=== PATIENT | female | born 1945 | race Caucasian/White ===

== ENCOUNTER → 2017-10-16 | Outpatient (CLI) | payer MEDICARE, OTHER ==
[~2017-10-16] MED LIST: ALBUTEROL 0.083% (NEB) 2.5 MG/3 ML AMP
== END | disposition home or self-care (01) ==
LOC: PUL 10:17
DX: R06.2 Wheezing (principal); J84.10 Pulmonary fibrosis, unspecified
CPT/HCPCS: 94060; 94726; 94729

== ENCOUNTER 2017-12-29 18:17 | Inpatient (IN) | payer MEDICARE, OTHER ==
[2017-12-29] MEDS: METHYLPREDNISOLONE 125 MG INJ IV (19:23)
[2017-12-29] MEDS: SOD CHLORIDE 0.9% 500 ML IV (19:24)
[2017-12-29 19:31] LABS: HEMATOCRIT 39.8 % (37.0-47.0); HEMOGLOBIN 13.3 g/dl (12.0-16.0); MEAN CORPUSCULAR HEMOGLOBIN 31.4 pg (29.0-33.0); MEAN CORPUSCULAR HGB CONC 33.4 g/dl (32.0-37.0); MEAN CORPUSCULAR VOLUME 93.9 fl (82.0-101.0); MEAN PLATELET VOLUME 10.7 fl (7.4-10.4); PLATELET COUNT 261 10^3/UL (140-415); RED BLOOD COUNT 4.24 10^6/ul (4.20-5.40); RED CELL DISTRIBUTION WIDTH 13.7 % (11.5-14.5)
[2017-12-29 19:31] LABS: WHITE BLOOD COUNT 8.1 10^3/ul (4.8-10.8)
[2017-12-29 19:39] LABS: ADD MAN DIFF? YES; POSITIVE DIFF @See below
[2017-12-29] MEDS: ALBUTEROL 0.5% (NEB) 2.5 MG/0.5 ML AMP INH (19:41)
[2017-12-29 19:53] LABS: B-TYPE NATRIURETIC PEPTIDE 2080 PG/ML (0-125)
[2017-12-29 20:02] LABS: ADD UMIC YES; UR ASCORBIC ACID NEGATIVE (NEGATIVE); UR BILIRUBIN (Dip) NEGATIVE (NEGATIVE); UR BLOOD (Dip) 2+ mg/dL (NEGATIVE); UR CLARITY CLEAR (CLEAR); UR COLOR COLORLESS (YELLOW); UR GLUCOSE (Dip) NEGATIVE (NEGATIVE); UR KETONES (Dip) NEGATIVE (NEGATIVE); UR LEUKOCYTE ESTERASE (Dip) NEGATIVE Leu/ul (NEGATIVE); UR NITRITE (Dip) NEGATIVE (NEGATIVE); UR RBC 0 /HPF (0-5); UR SPECIFIC GRAVITY (Dip) 1.003 (1.003-1.030); UR TOTAL PROTEIN (Dip) NEGATIVE (NEGATIVE); UR UROBILINOGEN (Dip) NEGATIVE (NEGATIVE); UR WBC 1 /HPF (0-5)
[2017-12-29 20:17] LABS: BAND NEUTROPHILS #M 0.1 10^3/ul (0.0-0.6); BAND NEUTROPHILS % (M) 2 % (0-4); LYMPHOCYTES #M 1.2 10^3/ul (0.8-2.9); LYMPHOCYTES % (M) 16 % (15-51); PLATELET ESTIMATE NORMAL; POLYCHROMASIA 3+ (0-0); SEG NEUT #M 6.7 10^3/ul (1.6-7.5); SEGMENTED NEUTROPHILS (M) % 82 % (39-77)
[2017-12-29] MEDS ORDERED: NACL 0.9% 3 ML SYG IV (20:30)
[2017-12-29] MEDS ORDERED: BISACODYL (EC) 5 MG TAB PO (20:30)
[2017-12-29] MEDS ORDERED: DOCUSATE SODIUM 100 MG CAP PO (20:30)
[2017-12-29 20:31] LABS: ALANINE AMINOTRANSFERASE 21 IU/L (13-69); ALBUMIN 4.3 g/dl (3.3-4.9); ALBUMIN/GLOBULIN RATIO 0.84; ALKALINE PHOSPHATASE 67 IU/L (42-121); ANION GAP 18 (8-16); ASPARTATE AMINO TRANSFERASE 29 IU/L (15-46); BILIRUBIN,INDIRECT 0.7 mg/dl (0-1.1); BILIRUBIN,TOTAL 0.7 mg/dl (0.2-1.3); BLOOD UREA NITROGEN 22 mg/dl (7-20); CALCIUM 9.5 mg/dl (8.4-10.2); CARBON DIOXIDE 25 mmol/L (21-31); CHLORIDE 100 mmol/L (97-110); CREATININE 0.72 mg/dl (0.44-1.00); GLUCOSE 153 mg/dl (70-220); LIPASE 25 U/L (23-300); POTASSIUM 4.7 mmol/L (3.5-5.1); SODIUM 138 mmol/L (135-144); TOTAL PROTEIN 9.4 g/dl (6.1-8.1)
[2017-12-29 20:45] LABS: TROPONIN-I < 0.012 ng/ml (0.000-0.120)
[2017-12-29 20:56] LABS: AADO2 Arterial 51.9 mmHg (7.0-24.0); Allen Test ACCEPTAB; Arterial Base Excess 1.6 mmol/L (-3.0-3); Arterial Blood Gas Oxygen Sat 97.8 mmHG (95.0-100.0); Arterial COHb 0.4 % (0.0-3.0); Arterial Fraction of Oxyhgb 97.1 % (93.0-99.0); Arterial HCO3 24.9 mmol/L (22.0-26.0); Arterial MetHb 0.3 % (0.0-1.5); Arterial Total Hemglobin 13.6 g/dl (12.0-18.0); Arterial pCO2 34.8 mmhg (35-45); MODE NASAL CANNULA; Site Right Radial
[2017-12-29] MEDS: FUROSEMIDE 40 MG INJ IV (21:03)
[2017-12-29] MEDS: ALBUTEROL/IPRATROPIUM (NEB) 3 ML AMP HHN (22:19)
[2017-12-30] MEDS: PANTOPRAZOLE (EC) 40 MG TAB PO ×3 (00:07→20:53)
[2017-12-30] MEDS: morphine 2 MG INJ IV (00:23)
[2017-12-30] MEDS: ONDANSETRON 4 MG INJ IV ×2 (00:23→12:03)
[2017-12-30] MEDS: ALBUTEROL/IPRATROPIUM (NEB) 3 ML AMP HHN ×6 (00:44→19:10)
[2017-12-30 01:12] LABS: MAGNESIUM 1.8 mg/dl (1.7-2.5)
[2017-12-30 02:23] LABS: ADD MAN DIFF? NO
[2017-12-30 02:27] LABS: WHITE BLOOD COUNT 4.4 10^3/ul (4.8-10.8)
[2017-12-30 02:27] LABS: ABNORMAL IP MESSAGE 1; BASOPHILS % 0.2 % (0.0-2.0); HEMATOCRIT 37.4 % (37.0-47.0); HEMOGLOBIN 12.5 g/dl (12.0-16.0); LYMPHOCYTES # 0.5 10^3/ul (0.8-2.9); LYMPHOCYTES % 10.5 % (15.0-51.0); MEAN CORPUSCULAR HEMOGLOBIN 31.5 pg (29.0-33.0); MEAN CORPUSCULAR HGB CONC 33.4 g/dl (32.0-37.0); MEAN CORPUSCULAR VOLUME 94.2 fl (82.0-101.0); MEAN PLATELET VOLUME 10.3 fl (7.4-10.4); MONOCYTES % 0.9 % (0.0-11.0); NEUTROPHIL # 3.9 10^3/ul (1.6-7.5); NEUTROPHILS % 87.9 % (39.0-77.0); PLATELET COUNT 245 10^3/UL (140-415); RED BLOOD COUNT 3.97 10^6/ul (4.20-5.40); RED CELL DISTRIBUTION WIDTH 13.6 % (11.5-14.5)
[2017-12-30 02:31] LABS: POSITIVE DIFF @See below
[2017-12-30 02:56] LABS: ANION GAP 20 (8-16); ASPARTATE AMINO TRANSFERASE 26 IU/L (15-46); BLOOD UREA NITROGEN 21 mg/dl (7-20); CALCIUM 9.1 mg/dl (8.4-10.2); CARBON DIOXIDE 27 mmol/L (21-31); CHLORIDE 98 mmol/L (97-110); CREATININE 0.78 mg/dl (0.44-1.00); GLUCOSE 273 mg/dl (70-220); MAGNESIUM 1.8 mg/dl (1.7-2.5); POTASSIUM 4.3 mmol/L (3.5-5.1); SODIUM 141 mmol/L (135-144)
[2017-12-30 02:57] LABS: ALANINE AMINOTRANSFERASE 18 IU/L (13-69); ALBUMIN 4.1 g/dl (3.3-4.9); ALBUMIN/GLOBULIN RATIO 0.89; ALKALINE PHOSPHATASE 58 IU/L (42-121); BILIRUBIN,INDIRECT 0.6 mg/dl (0-1.1); BILIRUBIN,TOTAL 0.6 mg/dl (0.2-1.3); CHOLESTEROL 178 mg/dl (100-200); HDL CHOLESTEROL 59 mg/dl (33-92); LDL CHOLESTEROL,CALCULATED 107 mg/dl; TOTAL PROTEIN 8.7 g/dl (6.1-8.1); TRIGLYCERIDES 58 mg/dl (0-149)
[2017-12-30 03:04] LABS: HEMOGLOBIN A1C 6.1 % (0-5.9)
[2017-12-30 03:08] LABS: CK-MB 0.55 ng/ml (0.0-2.4); CREATINE KINASE 27 IU/L (23-200)
[2017-12-30 03:09] LABS: TROPONIN-I < 0.012 ng/ml (0.000-0.120)
[2017-12-30] MEDS: METHYLPREDNISOLONE 40 MG INJ IV ×3 (05:07→20:53)
[2017-12-30 05:12] LABS: THYROID STIMULATING HORMONE 0.599 MIU/L (0.465-4.680)
[2017-12-30] MEDS: ACETAMINOPHEN 325 MG TAB PO (12:04)
[2017-12-30] MEDS: GUAIFENESIN 20 MG/ML 5ML CUP PO ×2 (12:04→23:51)
[2017-12-31] MEDS: ALBUTEROL/IPRATROPIUM (NEB) 3 ML AMP HHN ×6 (00:17→20:16)
[2017-12-31] MEDS: METHYLPREDNISOLONE 40 MG INJ IV ×2 (03:59→21:17)
[2017-12-31 05:37] LABS: ADD MAN DIFF? NO
[2017-12-31 05:43] LABS: WHITE BLOOD COUNT 12.7 10^3/ul (4.8-10.8)
[2017-12-31 05:43] LABS: BASOPHILS % 0.1 % (0.0-2.0); HEMATOCRIT 34.9 % (37.0-47.0); HEMOGLOBIN 11.8 g/dl (12.0-16.0); LYMPHOCYTES % 7.9 % (15.0-51.0); MEAN CORPUSCULAR HEMOGLOBIN 31.8 pg (29.0-33.0); MEAN CORPUSCULAR HGB CONC 33.8 g/dl (32.0-37.0); MEAN CORPUSCULAR VOLUME 94.1 fl (82.0-101.0); MEAN PLATELET VOLUME 10.6 fl (7.4-10.4); MONOCYTE # 0.3 10^3/ul (0.3-0.9); MONOCYTES % 2.4 % (0.0-11.0); NEUTROPHIL # 11.3 10^3/ul (1.6-7.5); NEUTROPHILS % 89.2 % (39.0-77.0); PLATELET COUNT 233 10^3/UL (140-415); RED BLOOD COUNT 3.71 10^6/ul (4.20-5.40)
[2017-12-31] MEDS: LEVOTHYROXINE 25 MCG TAB PO (06:03)
[2017-12-31] MEDS: PANTOPRAZOLE (EC) 40 MG TAB PO ×2 (06:03→18:16)
[2017-12-31 06:23] LABS: PHOSPHORUS 3.6 mg/dl (2.5-4.9)
[2017-12-31 06:23] LABS: MAGNESIUM 2.1 mg/dl (1.7-2.5)
[2017-12-31 06:30] LABS: ANION GAP 16 (8-16); BLOOD UREA NITROGEN 21 mg/dl (7-20); CALCIUM 9.4 mg/dl (8.4-10.2); CARBON DIOXIDE 31 mmol/L (21-31); CHLORIDE 98 mmol/L (97-110); CREATININE 0.74 mg/dl (0.44-1.00); GLUCOSE 158 mg/dl (70-220); POTASSIUM 4.2 mmol/L (3.5-5.1); SODIUM 141 mmol/L (135-144)
[2017-12-31] MEDS: GUAIFENESIN 20 MG/ML 5ML CUP PO (10:19)
[2017-12-31] MEDS ORDERED: morphine LIQ (10 MG/5 ML) CUP PO (14:30)
[2018-01-01] MEDS: ALBUTEROL/IPRATROPIUM (NEB) 3 ML AMP HHN ×6 (00:16→20:17)
[2018-01-01] MEDS: LEVOTHYROXINE 25 MCG TAB PO (05:31)
[2018-01-01] MEDS: PANTOPRAZOLE (EC) 40 MG TAB PO ×2 (05:31→18:00)
[2018-01-01] MEDS: METHYLPREDNISOLONE 40 MG INJ IV ×2 (10:08→20:59)
[2018-01-01] MEDS: PROPOFOL 40 ML (19:04)
[2018-01-01] MEDS: LIDOCAINE 2% (SDV) 5 ML INJ (19:04)
[2018-01-01] MEDS: FENTAnyl 50 MCG/ML VIAL IV (20:02)
[2018-01-01] MEDS ORDERED: FENTAnyl 50 MCG/ML VIAL (20:08)
[2018-01-02] MEDS: ALBUTEROL/IPRATROPIUM (NEB) 3 ML AMP HHN ×6 (01:06→21:00)
[2018-01-02] MEDS: LEVOTHYROXINE 25 MCG TAB PO (06:34)
[2018-01-02] MEDS: PANTOPRAZOLE (EC) 40 MG TAB PO ×2 (06:34→17:50)
[2018-01-02] MEDS: METHYLPREDNISOLONE 40 MG INJ IV (09:17)
[2018-01-02] MEDS: GUAIFENESIN 20 MG/ML 5ML CUP PO ×2 (13:25→17:50)
[2018-01-02 17:11] LABS: HLA B-27 NEGATIVE (NEGATIVE)
[2018-01-03 13:42] LABS: ANA SCREEN NEGATIVE (NEGATIVE)
== END 2018-01-02 21:05 | disposition home health service (06) | DRG 196 ==
LOC: E/R 18:17 → MS1 22:47 → TEL 20:18
PROVIDERS: Family Medicine
PROC: 0DB98ZX Excision of Duodenum, Via Natural or Artificial Opening Endoscopic, Diagnostic (ICD-10-PCS; principal; 2018-01-01 16:36)
PROC: 0DB68ZX Excision of Stomach, Via Natural or Artificial Opening Endoscopic, Diagnostic (ICD-10-PCS; 2018-01-01 16:36)
PROC: 0DD58ZX Extraction of Esophagus, Via Natural or Artificial Opening Endoscopic, Diagnostic (ICD-10-PCS; 2018-01-01 16:36)
PROC: 4A033R1 Measurement of Arterial Saturation, Peripheral, Percutaneous Approach (ICD-10-PCS; 2018-01-01 16:36)
DX: J84.112 Idiopathic pulmonary fibrosis (principal); J96.20 Acute and chronic respiratory failure, unspecified whether with hypoxia or hypercapnia; E43 Unspecified severe protein-calorie malnutrition; I50.43 Acute on chronic combined systolic (congestive) and diastolic (congestive) heart failure; N13.30 Unspecified hydronephrosis; Z68.1 Body mass index [BMI] 19.9 or less, adult; R13.10 Dysphagia, unspecified; E03.9 Hypothyroidism, unspecified; I11.0 Hypertensive heart disease with heart failure; J45.909 Unspecified asthma, uncomplicated; F41.9 Anxiety disorder, unspecified; Z99.81 Dependence on supplemental oxygen; K29.70 Gastritis, unspecified, without bleeding; D64.9 Anemia, unspecified
CPT/HCPCS: 36415; 36600; 71045; 71250; 76775; 80048; 80053; 80061; 81001; 82550; 82553; 82803; 83036; 83690; 83735; 83880; 84100; 84443; 84484; 85025; 86038; 86812; 88104; 88305; 88313; 92610; 93005; 93306; 94640; 94664; 96374; 96375; 99285-25

== ENCOUNTER 2018-02-13 10:53 | Inpatient (IN) | payer MEDICARE, OTHER ==
[2018-02-13] MEDS: ALBUTEROL 0.083% (NEB) 2.5 MG/3 ML AMP HHN (12:22)
[2018-02-13] MEDS: IPRATROPIUM (NEB) 0.5 MG/2.5 ML AMP HHN (12:22)
[2018-02-13 12:48] LABS: ADD MAN DIFF? NO
[2018-02-13 12:50] LABS: BASOPHIL # 0.1 10^3/ul (0.0-0.1); BASOPHILS % 0.9 % (0.0-2.0); EOSINOPHILS # 0.7 10^3/ul (0.0-0.5); HEMATOCRIT 38.2 % (37.0-47.0); HEMOGLOBIN 12.8 g/dl (12.0-16.0); LYMPHOCYTES # 2.4 10^3/ul (0.8-2.9); LYMPHOCYTES % 24.4 % (15.0-51.0); MEAN CORPUSCULAR HEMOGLOBIN 32.5 pg (29.0-33.0); MEAN CORPUSCULAR HGB CONC 33.5 g/dl (32.0-37.0); MONOCYTE # 0.7 10^3/ul (0.3-0.9); NEUTROPHIL # 5.9 10^3/ul (1.6-7.5); NEUTROPHILS % 60.4 % (39.0-77.0); PLATELET COUNT 267 10^3/UL (140-415); RED BLOOD COUNT 3.94 10^6/ul (4.20-5.40); RED CELL DISTRIBUTION WIDTH 14.7 % (11.5-14.5)
[2018-02-13 12:50] LABS: WHITE BLOOD COUNT 9.8 10^3/ul (4.8-10.8)
[2018-02-13] MEDS: LORAZEPAM 0.5 MG TAB PO (13:00)
[2018-02-13] MEDS: METHYLPREDNISOLONE 125 MG INJ IV ×2 (13:00→23:04)
[2018-02-13 13:08] LABS: ALANINE AMINOTRANSFERASE 21 IU/L (13-69); ALBUMIN 3.8 g/dl (3.3-4.9); ALBUMIN/GLOBULIN RATIO 0.84; ALKALINE PHOSPHATASE 66 IU/L (42-121); ANION GAP 12 (8-16); ASPARTATE AMINO TRANSFERASE 34 IU/L (15-46); BILIRUBIN,INDIRECT 0.4 mg/dl (0-1.1); BILIRUBIN,TOTAL 0.4 mg/dl (0.2-1.3); BLOOD UREA NITROGEN 15 mg/dl (7-20); CALCIUM 9.4 mg/dl (8.4-10.2); CARBON DIOXIDE 28 mmol/L (21-31); CHLORIDE 102 mmol/L (97-110); CREATININE 0.58 mg/dl (0.44-1.00); GLUCOSE 114 mg/dl (70-220); LIPASE 34 U/L (23-300); POTASSIUM 4.3 mmol/L (3.5-5.1); SODIUM 138 mmol/L (135-144); TOTAL PROTEIN 8.3 g/dl (6.1-8.1)
[2018-02-13 13:20] LABS: B-TYPE NATRIURETIC PEPTIDE 1430 PG/ML (0-125); TROPONIN-I < 0.010 ng/ml (0.000-0.120)
[2018-02-13 13:47] LABS: AADO2 Arterial 42.9 mmHg (7.0-24.0); Allen Test ACCEPTAB; Arterial Base Excess 2.5 mmol/L (-3.0-3); Arterial Blood Gas Oxygen Sat 91.2 mmHG (95.0-100.0); Arterial COHb 0.4 % (0.0-3.0); Arterial Fraction of Oxyhgb 90.7 % (93.0-99.0); Arterial HCO3 26.6 mmol/L (22.0-26.0); Arterial MetHb 0.2 % (0.0-1.5); Arterial Total Hemglobin 13.8 g/dl (12.0-18.0); Arterial pCO2 39.5 mmhg (35-45); MODE ROOM AIR; Site Right Radial
[2018-02-13] MEDS ORDERED: morphine 2 MG INJ IV (14:30)
[2018-02-13] MEDS ORDERED: DOCUSATE SODIUM 100 MG CAP PO (14:30)
[2018-02-13] MEDS ORDERED: ALBUTEROL/IPRATROPIUM (NEB) 3 ML AMP HHN (14:30)
[2018-02-13] MEDS ORDERED: NACL 0.9% 3 ML SYG IV (14:30)
[2018-02-13] MEDS ORDERED: MAGNESIUM HYDROXIDE 30ML CUP PO (14:30)
[2018-02-13] MEDS ORDERED: hydrALAzine 20 MG INJ IV (14:30)
[2018-02-13] MEDS ORDERED: HYDROCODONE/APAP (5/325) TAB PO (14:30)
[2018-02-13] MEDS ORDERED: NA PHOSPHATE/BIPHOS 133 ML ENEMA PR (14:30)
[2018-02-13] MEDS: FUROSEMIDE 40 MG INJ IV (14:34)
[2018-02-13 14:35] LABS: ADD UMIC YES; UR ASCORBIC ACID 20 mg/dL (NEGATIVE); UR BILIRUBIN (Dip) NEGATIVE (NEGATIVE); UR BLOOD (Dip) 1+ mg/dL (NEGATIVE); UR CLARITY SLIGHTLY CLOUDY (CLEAR); UR COLOR YELLOW (YELLOW); UR GLUCOSE (Dip) NEGATIVE (NEGATIVE); UR KETONES (Dip) NEGATIVE (NEGATIVE); UR LEUKOCYTE ESTERASE (Dip) TRACE Leu/ul (NEGATIVE); UR NITRITE (Dip) NEGATIVE (NEGATIVE); UR RBC 1 /HPF (0-5); UR SPECIFIC GRAVITY (Dip) 1.005 (1.003-1.030); UR TOTAL PROTEIN (Dip) NEGATIVE (NEGATIVE); UR UROBILINOGEN (Dip) NEGATIVE (NEGATIVE); UR WBC 1 /HPF (0-5)
[2018-02-13 15:41] LABS: FREE T4 (FREE THYROXINE) 1.34 ng/dl (0.78-2.44)
[2018-02-13] MEDS: ALBUTEROL/IPRATROPIUM (NEB) 3 ML AMP HHN ×2 (17:24→21:01)
[2018-02-13] MEDS: LORAZEPAM 2 MG INJ IV (19:07)
[2018-02-13] MEDS ORDERED: DIPHENHYDRAMINE 50 MG INJ IV (20:00)
[2018-02-13] MEDS: ONDANSETRON 4 MG INJ IV (20:03)
[2018-02-13] MEDS: SOD CHLORIDE 0.9% 1,000 ML IV (20:07)
[2018-02-13] MEDS: HEPARIN 5,000 UNIT/0.5 ML VIAL SC (21:15)
[2018-02-14] MEDS: ALBUTEROL/IPRATROPIUM (NEB) 3 ML AMP HHN ×6 (00:10→21:17)
[2018-02-14 05:51] LABS: ADD MAN DIFF? NO
[2018-02-14 06:01] LABS: HEMOGLOBIN A1C 5.8 % (0-5.9)
[2018-02-14 06:02] LABS: WHITE BLOOD COUNT 5.1 10^3/ul (4.8-10.8)
[2018-02-14 06:02] LABS: BASOPHILS % 0.2 % (0.0-2.0); HEMATOCRIT 36.4 % (37.0-47.0); HEMOGLOBIN 12.3 g/dl (12.0-16.0); MEAN CORPUSCULAR HEMOGLOBIN 32.5 pg (29.0-33.0); MEAN CORPUSCULAR HGB CONC 33.8 g/dl (32.0-37.0); MEAN CORPUSCULAR VOLUME 96.3 fl (82.0-101.0); MEAN PLATELET VOLUME 10.4 fl (7.4-10.4); MONOCYTE # 0.1 10^3/ul (0.3-0.9); MONOCYTES % 1.6 % (0.0-11.0); NEUTROPHILS % 78.8 % (39.0-77.0); PLATELET COUNT 268 10^3/UL (140-415); RED BLOOD COUNT 3.78 10^6/ul (4.20-5.40); RED CELL DISTRIBUTION WIDTH 14.8 % (11.5-14.5)
[2018-02-14] MEDS: METHYLPREDNISOLONE 125 MG INJ IV ×3 (06:13→21:54)
[2018-02-14 06:15] LABS: CHOLESTEROL 196 mg/dl (100-200)
[2018-02-14 06:15] LABS: CHOL/HDL RATIO 2.9 RATIO; HDL CHOLESTEROL 67 mg/dl (33-92); LDL CHOLESTEROL,CALCULATED 119 mg/dl; TRIGLYCERIDES 52 mg/dl (0-149)
[2018-02-14 06:40] LABS: ANION GAP 13 (8-16); BLOOD UREA NITROGEN 18 mg/dl (7-20); CALCIUM 9.3 mg/dl (8.4-10.2); CARBON DIOXIDE 28 mmol/L (21-31); CHLORIDE 102 mmol/L (97-110); CREATININE 0.56 mg/dl (0.44-1.00); GLUCOSE 144 mg/dl (70-220); MAGNESIUM 1.7 mg/dl (1.7-2.5); PHOSPHORUS 4.3 mg/dl (2.5-4.9); POTASSIUM 4.4 mmol/L (3.5-5.1); SODIUM 139 mmol/L (135-144)
[2018-02-14] MEDS: FUROSEMIDE 40 MG INJ IV (10:56)
[2018-02-14] MEDS: HEPARIN 5,000 UNIT/0.5 ML VIAL SC ×2 (10:59→21:11)
[2018-02-14] MEDS: LOSARTAN 25 MG TAB PO (11:00)
[2018-02-14] MEDS ORDERED: CEPASTAT LOZENGE MT (15:00)
[2018-02-14] MEDS ORDERED: morphine LIQ (10 MG/5 ML) CUP PO (15:00)
[2018-02-14] MEDS: GUAIFENESIN 20 MG/ML 5ML CUP PO ×2 (16:13→20:58)
[2018-02-14] MEDS: MOMETASONE 0.24 GM INHALER INH (18:05)
[2018-02-14] MEDS: ACETAMINOPHEN 325 MG TAB PO (21:54)
[2018-02-15] MEDS: ALBUTEROL/IPRATROPIUM (NEB) 3 ML AMP HHN ×6 (01:41→21:28)
[2018-02-15] MEDS: ACETAMINOPHEN 325 MG TAB PO (03:43)
[2018-02-15] MEDS: GUAIFENESIN 20 MG/ML 5ML CUP PO (03:44)
[2018-02-15 05:48] LABS: BASOPHILS % 0.1 % (0.0-2.0); HEMATOCRIT 35.8 % (37.0-47.0); HEMOGLOBIN 12.2 g/dl (12.0-16.0); LYMPHOCYTES # 1.1 10^3/ul (0.8-2.9); LYMPHOCYTES % 8.6 % (15.0-51.0); MEAN CORPUSCULAR HEMOGLOBIN 33.1 pg (29.0-33.0); MEAN CORPUSCULAR HGB CONC 34.1 g/dl (32.0-37.0); MEAN PLATELET VOLUME 10.4 fl (7.4-10.4); MONOCYTE # 0.4 10^3/ul (0.3-0.9); MONOCYTES % 2.9 % (0.0-11.0); NEUTROPHIL # 11.1 10^3/ul (1.6-7.5); PLATELET COUNT 265 10^3/UL (140-415); RED BLOOD COUNT 3.69 10^6/ul (4.20-5.40); RED CELL DISTRIBUTION WIDTH 14.7 % (11.5-14.5)
[2018-02-15 05:48] LABS: WHITE BLOOD COUNT 12.6 10^3/ul (4.8-10.8)
[2018-02-15 05:49] LABS: ADD MAN DIFF? NO
[2018-02-15 06:14] LABS: ANION GAP 17 (8-16); BLOOD UREA NITROGEN 39 mg/dl (7-20); CALCIUM 9.4 mg/dl (8.4-10.2); CARBON DIOXIDE 29 mmol/L (21-31); CHLORIDE 94 mmol/L (97-110); CREATININE 0.79 mg/dl (0.44-1.00); GLUCOSE 250 mg/dl (70-220); SODIUM 136 mmol/L (135-144)
[2018-02-15] MEDS: METHYLPREDNISOLONE 125 MG INJ IV (06:32)
[2018-02-15] MEDS: LOSARTAN 25 MG TAB PO (09:00)
[2018-02-15] MEDS: MOMETASONE 0.24 GM INHALER INH (09:10)
[2018-02-15] MEDS: FUROSEMIDE 40 MG INJ IV (09:11)
[2018-02-15] MEDS: HEPARIN 5,000 UNIT/0.5 ML VIAL SC ×2 (09:13→20:16)
[2018-02-15] MEDS: LORAZEPAM 2 MG INJ IV (09:32)
[2018-02-15] MEDS ORDERED: GLUCOSE GEL 15 GRAM TUBE PO ×2 (14:00)
[2018-02-15] MEDS ORDERED: DEXTROSE 50% 50 ML SYRINGE IV ×2 (14:00)
[2018-02-15] MEDS ORDERED: GLUCAGON 1 MG INJ IM (14:00)
[2018-02-15] MEDS ORDERED: GLUCOSE GEL 15 GRAM TUBE BUCCAL (14:00)
[2018-02-15] MEDS: INSULIN ASPART [NOVOLOG] 3 ML PEN SC ×2 (17:37→20:14)
[2018-02-15] MEDS: ACCU-CHEK XX (23:51)
[2018-02-16] MEDS: ALBUTEROL/IPRATROPIUM (NEB) 3 ML AMP HHN ×6 (01:59→22:06)
[2018-02-16] MEDS: ACETAMINOPHEN 325 MG TAB PO ×2 (02:40→20:43)
[2018-02-16 06:00] LABS: ADD MAN DIFF? NO
[2018-02-16 06:03] LABS: BASOPHILS % 0.2 % (0.0-2.0); EOSINOPHILS # 0.1 10^3/ul (0.0-0.5); EOSINOPHILS % 0.4 % (0.0-7.0); HEMATOCRIT 37.7 % (37.0-47.0); HEMOGLOBIN 12.4 g/dl (12.0-16.0); LYMPHOCYTES # 3.6 10^3/ul (0.8-2.9); LYMPHOCYTES % 24.1 % (15.0-51.0); MEAN CORPUSCULAR HEMOGLOBIN 31.7 pg (29.0-33.0); MEAN CORPUSCULAR HGB CONC 32.9 g/dl (32.0-37.0); MEAN CORPUSCULAR VOLUME 96.4 fl (82.0-101.0); MEAN PLATELET VOLUME 10.3 fl (7.4-10.4); MONOCYTES % 6.7 % (0.0-11.0); NEUTROPHIL # 10.3 10^3/ul (1.6-7.5); NEUTROPHILS % 68.2 % (39.0-77.0); PLATELET COUNT 248 10^3/UL (140-415); RED BLOOD COUNT 3.91 10^6/ul (4.20-5.40); RED CELL DISTRIBUTION WIDTH 14.8 % (11.5-14.5)
[2018-02-16 06:03] LABS: WHITE BLOOD COUNT 15.1 10^3/ul (4.8-10.8)
[2018-02-16 06:22] LABS: ANION GAP 10 (8-16); BLOOD UREA NITROGEN 34 mg/dl (7-20); CALCIUM 9.1 mg/dl (8.4-10.2); CARBON DIOXIDE 34 mmol/L (21-31); CHLORIDE 97 mmol/L (97-110); CREATININE 0.74 mg/dl (0.44-1.00); GLUCOSE 110 mg/dl (70-220); POTASSIUM 3.9 mmol/L (3.5-5.1); SODIUM 137 mmol/L (135-144)
[2018-02-16] MEDS: INSULIN ASPART [NOVOLOG] 3 ML PEN SC ×4 (07:47→20:36)
[2018-02-16] MEDS: LOSARTAN 25 MG TAB PO (07:57)
[2018-02-16] MEDS: predniSONE 20 MG TAB PO ×2 (08:20→08:55)
[2018-02-16] MEDS: FUROSEMIDE 20 MG TAB PO (08:39)
[2018-02-16] MEDS: MOMETASONE 0.24 GM INHALER INH (08:40)
[2018-02-16] MEDS: HEPARIN 5,000 UNIT/0.5 ML VIAL SC ×2 (08:40→20:39)
[2018-02-16] MEDS ORDERED: predniSONE 20 MG TAB PO (09:00)
[2018-02-17] MEDS: ALBUTEROL/IPRATROPIUM (NEB) 3 ML AMP HHN ×6 (00:41→20:06)
[2018-02-17] MEDS: ACCU-CHEK XX ×2 (02:00→22:12)
[2018-02-17 05:50] LABS: ADD MAN DIFF? NO
[2018-02-17 05:55] LABS: WHITE BLOOD COUNT 11.5 10^3/ul (4.8-10.8)
[2018-02-17 05:55] LABS: BASOPHILS % 0.2 % (0.0-2.0); EOSINOPHILS # 0.1 10^3/ul (0.0-0.5); EOSINOPHILS % 1.1 % (0.0-7.0); HEMATOCRIT 38.1 % (37.0-47.0); HEMOGLOBIN 12.9 g/dl (12.0-16.0); LYMPHOCYTES # 3.8 10^3/ul (0.8-2.9); LYMPHOCYTES % 33.3 % (15.0-51.0); MEAN CORPUSCULAR HEMOGLOBIN 33.2 pg (29.0-33.0); MEAN CORPUSCULAR HGB CONC 33.9 g/dl (32.0-37.0); MEAN CORPUSCULAR VOLUME 97.9 fl (82.0-101.0); MEAN PLATELET VOLUME 10.3 fl (7.4-10.4); MONOCYTES % 8.5 % (0.0-11.0); NEUTROPHIL # 6.5 10^3/ul (1.6-7.5); NEUTROPHILS % 56.6 % (39.0-77.0); PLATELET COUNT 256 10^3/UL (140-415); RED BLOOD COUNT 3.89 10^6/ul (4.20-5.40); RED CELL DISTRIBUTION WIDTH 14.7 % (11.5-14.5)
[2018-02-17 06:45] LABS: ANION GAP 10 (8-16); BLOOD UREA NITROGEN 23 mg/dl (7-20); CARBON DIOXIDE 37 mmol/L (21-31); CHLORIDE 95 mmol/L (97-110); CREATININE 0.59 mg/dl (0.44-1.00); GLUCOSE 101 mg/dl (70-220); SODIUM 138 mmol/L (135-144)
[2018-02-17] MEDS: INSULIN ASPART [NOVOLOG] 3 ML PEN SC ×4 (08:00→22:10)
[2018-02-17] MEDS: FUROSEMIDE 20 MG TAB PO (08:53)
[2018-02-17] MEDS: predniSONE 20 MG TAB PO (08:54)
[2018-02-17] MEDS: HEPARIN 5,000 UNIT/0.5 ML VIAL SC ×2 (08:54→22:43)
[2018-02-17] MEDS: LOSARTAN 25 MG TAB PO (08:54)
[2018-02-17] MEDS: MOMETASONE 0.24 GM INHALER INH (08:54)
[2018-02-17] MEDS: GUAIFENESIN 20 MG/ML 5ML CUP PO ×2 (12:11→22:27)
[2018-02-17] MEDS: LORAZEPAM 2 MG INJ IV (13:40)
[2018-02-18] MEDS: ALBUTEROL/IPRATROPIUM (NEB) 3 ML AMP HHN ×4 (01:27→13:00)
[2018-02-18] MEDS: LORAZEPAM 2 MG INJ IV (04:56)
[2018-02-18] MEDS: ACETAMINOPHEN 325 MG TAB PO (04:56)
[2018-02-18] MEDS: NITROGLYCERIN (SL) 0.4 MG TAB SL (05:04)
[2018-02-18 05:43] LABS: ADD MAN DIFF? NO
[2018-02-18 05:56] LABS: WHITE BLOOD COUNT 13.1 10^3/ul (4.8-10.8)
[2018-02-18 05:56] LABS: BASOPHILS % 0.2 % (0.0-2.0); EOSINOPHILS # 0.4 10^3/ul (0.0-0.5); EOSINOPHILS % 2.7 % (0.0-7.0); HEMATOCRIT 38.7 % (37.0-47.0); HEMOGLOBIN 12.8 g/dl (12.0-16.0); LYMPHOCYTES # 4.8 10^3/ul (0.8-2.9); LYMPHOCYTES % 36.7 % (15.0-51.0); MEAN CORPUSCULAR HEMOGLOBIN 32.3 pg (29.0-33.0); MEAN CORPUSCULAR HGB CONC 33.1 g/dl (32.0-37.0); MEAN CORPUSCULAR VOLUME 97.7 fl (82.0-101.0); MEAN PLATELET VOLUME 10.2 fl (7.4-10.4); MONOCYTE # 0.9 10^3/ul (0.3-0.9); MONOCYTES % 6.9 % (0.0-11.0); NEUTROPHILS % 53.1 % (39.0-77.0); PLATELET COUNT 263 10^3/UL (140-415); RED BLOOD COUNT 3.96 10^6/ul (4.20-5.40); RED CELL DISTRIBUTION WIDTH 14.8 % (11.5-14.5)
[2018-02-18 06:20] LABS: ANION GAP 12 (8-16); BLOOD UREA NITROGEN 32 mg/dl (7-20); CARBON DIOXIDE 35 mmol/L (21-31); CHLORIDE 92 mmol/L (97-110); CREATININE 0.64 mg/dl (0.44-1.00); GLUCOSE 104 mg/dl (70-220); POTASSIUM 4.1 mmol/L (3.5-5.1); SODIUM 135 mmol/L (135-144)
[2018-02-18] MEDS: MOMETASONE 0.24 GM INHALER INH (07:50)
[2018-02-18] MEDS: INSULIN ASPART [NOVOLOG] 3 ML PEN SC ×2 (07:50→11:41)
[2018-02-18] MEDS: predniSONE 20 MG TAB PO (08:52)
[2018-02-18] MEDS: LOSARTAN 25 MG TAB PO (08:52)
[2018-02-18] MEDS: FUROSEMIDE 20 MG TAB PO (08:53)
[2018-02-18] MEDS: HEPARIN 5,000 UNIT/0.5 ML VIAL SC (08:53)
[2018-02-19] MEDS ORDERED: predniSONE 10 MG TAB PO (09:00)
== END 2018-02-18 16:33 | DRG 291 ==
LOC: FTE 10:53 → 6WM 13:31
DX: I11.0 Hypertensive heart disease with heart failure (principal); J96.21 Acute and chronic respiratory failure with hypoxia; J44.1 Chronic obstructive pulmonary disease with (acute) exacerbation; J84.112 Idiopathic pulmonary fibrosis; F41.9 Anxiety disorder, unspecified; Z99.81 Dependence on supplemental oxygen; E03.9 Hypothyroidism, unspecified; R13.10 Dysphagia, unspecified; I27.20 Pulmonary hypertension, unspecified; I50.43 Acute on chronic combined systolic (congestive) and diastolic (congestive) heart failure
CPT/HCPCS: 36415; 36600; 71045; 80048; 80053; 80061; 81001; 82803; 82962; 83036; 83690; 83735; 83880; 84100; 84439; 84443; 84484; 85025; 92610; 93005; 94640; 94644; 94664; 96374; 97165; 97535; 99285-25

== ENCOUNTER 2018-05-10 06:43 | Inpatient (IN) | payer MEDICARE, OTHER ==
[2018-05-10] MEDS: SOD CHLORIDE 0.9% 1,000 ML IV ×2 (04:00→12:14)
[2018-05-10] MEDS: CEFEPIME 2GM/50 ML (PMX) 50 ML IVPB (06:59)
[2018-05-10] MEDS: ACETAMINOPHEN 650 MG SUPP PR (06:59)
[2018-05-10] MEDS: SODIUM CHLORIDE 0.9% 1L BAG IV* (07:01)
[2018-05-10 07:07] LABS: ABNORMAL IP MESSAGE 1; HEMATOCRIT 32.5 % (37.0-47.0); HEMOGLOBIN 10.7 g/dl (12.0-16.0); MEAN CORPUSCULAR HEMOGLOBIN 32.1 pg (29.0-33.0); MEAN CORPUSCULAR HGB CONC 32.9 g/dl (32.0-37.0); MEAN CORPUSCULAR VOLUME 97.6 fl (82.0-101.0); MEAN PLATELET VOLUME 9.4 fl (7.4-10.4); PLATELET COUNT 402 10^3/UL (140-415); RED BLOOD COUNT 3.33 10^6/ul (4.20-5.40)
[2018-05-10 07:07] LABS: WHITE BLOOD COUNT 26.1 10^3/ul (4.8-10.8)
[2018-05-10 07:13] LABS: ADD MAN DIFF? YES; POSITIVE DIFF @See below
[2018-05-10 07:29] LABS: ANION GAP 15 (5-13); BLOOD UREA NITROGEN 23 mg/dl (7-20); CALCIUM 9.2 mg/dl (8.4-10.2); CARBON DIOXIDE 28 mmol/L (21-31); CHLORIDE 90 mmol/L (97-110); CREATININE 0.73 mg/dl (0.44-1.00); GLUCOSE 195 mg/dl (70-220); POTASSIUM 4.9 mmol/L (3.5-5.1); SODIUM 133 mmol/L (135-144)
[2018-05-10 07:30] LABS: INR 1.02; PROTIME 13.5 Sec (11.9-14.9); PT RATIO 1.1
[2018-05-10 07:31] LABS: PARTIAL THROMBOPLASTIN TIME 26.1 Sec (23.0-35.0)
[2018-05-10] MEDS: ALBUTEROL 0.083% (NEB) 2.5 MG/3 ML AMP HHN (07:31)
[2018-05-10] MEDS: IPRATROPIUM (NEB) 0.5 MG/2.5 ML AMP HHN (07:32)
[2018-05-10] MEDS: VANCOMYCIN 1 GM (PMX) 250 ML IVPB (07:40)
[2018-05-10 07:41] LABS: TROPONIN-I < 0.012 ng/ml (0.000-0.120)
[2018-05-10 07:47] LABS: ANISOCYTOSIS 1+ (0-0); BAND NEUTROPHILS #M 4.6 10^3/ul (0.0-0.6); BAND NEUTROPHILS % (M) 18 % (0-4); LYMPHOCYTES % (M) 8 % (15-51); MONOCYTE #M 0.5 10^3/ul (0.3-0.9); MONOCYTES % (M) 2 % (0-11); PLATELET ESTIMATE NORMAL; SEGMENTED NEUTROPHILS (M) % 72 % (39-77); SPHEROCYTES 1+ (0-0)
[2018-05-10 08:44] LABS: AADO2 Arterial 534.2 mmHg (7.0-24.0); Allen Test ACCEPTAB; Arterial Base Excess 2.2 mmol/L (-3.0-3); Arterial Blood Gas Oxygen Sat 98.6 mmHG (95.0-100.0); Arterial COHb 0.2 % (0.0-3.0); Arterial Fraction of Oxyhgb 98.2 % (93.0-99.0); Arterial HCO3 27.4 mmol/L (22.0-26.0); Arterial MetHb 0.2 % (0.0-1.5); Arterial Total Hemglobin 10.8 g/dl (12.0-18.0); Arterial pCO2 45.6 mmhg (35-45); Blood Gas PS 6; MODE MASK - BIPAP; Site Right Radial
[2018-05-10] MEDS ORDERED: VANCOMYCIN IV PER PHARMACY XX (11:00)
[2018-05-10] MEDS ORDERED: DOCUSATE SODIUM 100 MG CAP PO (11:00)
[2018-05-10] MEDS ORDERED: ONDANSETRON 4 MG INJ IV (11:00)
[2018-05-10] MEDS ORDERED: NACL 0.9% 3 ML SYG IV (11:00)
[2018-05-10] MEDS ORDERED: ACETAMINOPHEN 325 MG TAB PO (11:00)
[2018-05-10] MEDS: NORepinephrine 8MG/250 ML (PMX 250 ML IV (11:07)
[2018-05-10] MEDS: LIDOCAINE 1% (MPF) 5 ML VIAL SC (11:29)
[2018-05-10 11:45] LABS: LACTIC ACID 1.6 mmol/L (0.5-2.0)
[2018-05-10] MEDS ORDERED: PIPER-TAZO 3.375 GM IV (PMX) 100 ML IVPB (12:00)
[2018-05-10] MEDS: PIPER-TAZO 2.25 GM (PMX) 50 ML IVPB ×2 (12:28→18:57)
[2018-05-10] MEDS: ALBUTEROL/IPRATROPIUM (NEB) 3 ML AMP HHN (13:46)
[2018-05-10] MEDS ORDERED: MINERAL OIL 133 ML ENEMA PR (17:30)
[2018-05-10] MEDS ORDERED: MAGNESIUM HYDROXIDE 30ML CUP PO (17:30)
[2018-05-10] MEDS ORDERED: BISACODYL (EC) 5 MG TAB PO (17:30)
[2018-05-10] MEDS: MELATONIN 3 MG TABLET PO (23:46)
[2018-05-10] MEDS: HYDROCODONE/APAP (5/325) TAB PO (23:51)
[2018-05-11] MEDS: PIPER-TAZO 2.25 GM (PMX) 50 ML IVPB ×4 (00:21→17:09)
[2018-05-11 05:16] LABS: HEMATOCRIT 27.1 % (37.0-47.0); MEAN CORPUSCULAR HEMOGLOBIN 32.5 pg (29.0-33.0); MEAN CORPUSCULAR HGB CONC 33.2 g/dl (32.0-37.0); MEAN CORPUSCULAR VOLUME 97.8 fl (82.0-101.0); MEAN PLATELET VOLUME 9.2 fl (7.4-10.4); PLATELET COUNT 338 10^3/UL (140-415); RED BLOOD COUNT 2.77 10^6/ul (4.20-5.40); RED CELL DISTRIBUTION WIDTH 14.2 % (11.5-14.5)
[2018-05-11 05:16] LABS: WHITE BLOOD COUNT 21.2 10^3/ul (4.8-10.8)
[2018-05-11 05:20] LABS: HEMOGLOBIN A1C 6.3 % (0-5.9)
[2018-05-11 05:30] LABS: POSITIVE DIFF @See below
[2018-05-11 05:31] LABS: ADD MAN DIFF? YES
[2018-05-11 05:35] LABS: ANION GAP 5 (5-13); BLOOD UREA NITROGEN 22 mg/dl (7-20); CALCIUM 8.5 mg/dl (8.4-10.2); CARBON DIOXIDE 28 mmol/L (21-31); CHLORIDE 105 mmol/L (97-110); GLUCOSE 72 mg/dl (70-220); POTASSIUM 4.3 mmol/L (3.5-5.1); SODIUM 138 mmol/L (135-144)
[2018-05-11] MEDS: PANTOPRAZOLE 40 MG INJ IV (06:04)
[2018-05-11] MEDS ORDERED: PANTOPRAZOLE (EC) 40 MG TAB PO (07:05)
[2018-05-11] MEDS: LEVOTHYROXINE 25 MCG TAB PO (07:12)
[2018-05-11] MEDS: SOD CHLORIDE 0.9% 1,000 ML IV ×3 (07:12→22:42)
[2018-05-11] MEDS: predniSONE 10 MG TAB PO (08:44)
[2018-05-11] MEDS: ASCORBIC ACID 500 MG TAB PO (08:44)
[2018-05-11] MEDS: VANCOMYCIN 750 MG in SOD CHLORIDE 0.9% 150 ML IVPB (08:44)
[2018-05-11] MEDS: MULTIVITAMINS THERAPEUTIC TAB PO (08:44)
[2018-05-11] MEDS: GUAIFENESIN 20 MG/ML 5ML CUP PO ×2 (08:45→17:07)
[2018-05-11] MEDS: FUROSEMIDE 20 MG TAB PO (08:45)
[2018-05-11] MEDS: SERTRALINE 50 MG TAB PO (08:45)
[2018-05-11] MEDS: ENOXAPARIN 40 MG/0.4 ML SYG SC (08:46)
[2018-05-11 09:58] LABS: ANISOCYTOSIS 1+ (0-0); BAND NEUTROPHILS #M 1.4 10^3/ul (0.0-0.6); BAND NEUTROPHILS % (M) 7 % (0-4); EOSINOPHILS % (M) 1 % (0-7); LYMPHOCYTES % (M) 5 % (15-51); MONOCYTE #M 0.6 10^3/ul (0.3-0.9); MONOCYTES % (M) 3 % (0-11); PLATELET ESTIMATE NORMAL; POIKILOCYTOSIS 1+ (0-0); POLYCHROMASIA 1+ (0-0); SEG NEUT #M 18.1 10^3/ul (1.6-7.5); SEGMENTED NEUTROPHILS (M) % 84 % (39-77); SMUDGE%M 1 % (0-0)
[2018-05-11 12:54] LABS: ADD UMIC YES; UR ASCORBIC ACID NEGATIVE (NEGATIVE); UR BACTERIA FEW /HPF (NONE SEEN); UR BILIRUBIN (Dip) NEGATIVE (NEGATIVE); UR BLOOD (Dip) 2+ mg/dL (NEGATIVE); UR CLARITY SLIGHTLY CLOUDY (CLEAR); UR COLOR YELLOW (YELLOW); UR GLUCOSE (Dip) NEGATIVE (NEGATIVE); UR KETONES (Dip) 1+ mg/dL (NEGATIVE); UR LEUKOCYTE ESTERASE (Dip) TRACE Leu/ul (NEGATIVE); UR NITRITE (Dip) NEGATIVE (NEGATIVE); UR RBC 29 /HPF (0-5); UR SPECIFIC GRAVITY (Dip) 1.019 (1.003-1.030); UR TOTAL PROTEIN (Dip) 1+ mg/dl (NEGATIVE); UR UROBILINOGEN (Dip) NEGATIVE (NEGATIVE); UR WBC 3 /HPF (0-5)
[2018-05-11] MEDS: HYDROCODONE/APAP (5/325) TAB PO (17:05)
[2018-05-11] MEDS: MELATONIN 3 MG TABLET PO (20:53)
[2018-05-11] MEDS: NORepinephrine 8MG/250 ML (PMX 250 ML IV (22:52)
[2018-05-12] MEDS: PIPER-TAZO 2.25 GM (PMX) 50 ML IVPB ×2 (00:51→05:36)
[2018-05-12 04:53] LABS: ADD MAN DIFF? NO
[2018-05-12 04:57] LABS: BASOPHILS % 0.1 % (0.0-2.0); EOSINOPHILS # 0.1 10^3/ul (0.0-0.5); EOSINOPHILS % 0.6 % (0.0-7.0); HEMATOCRIT 28.2 % (37.0-47.0); HEMOGLOBIN 9.3 g/dl (12.0-16.0); LYMPHOCYTES # 2.4 10^3/ul (0.8-2.9); LYMPHOCYTES % 10.5 % (15.0-51.0); MEAN CORPUSCULAR HEMOGLOBIN 31.8 pg (29.0-33.0); MEAN CORPUSCULAR VOLUME 96.6 fl (82.0-101.0); MEAN PLATELET VOLUME 9.3 fl (7.4-10.4); MONOCYTES % 4.6 % (0.0-11.0); NEUTROPHIL # 18.6 10^3/ul (1.6-7.5); NEUTROPHILS % 83.3 % (39.0-77.0); PLATELET COUNT 369 10^3/UL (140-415); RED BLOOD COUNT 2.92 10^6/ul (4.20-5.40); RED CELL DISTRIBUTION WIDTH 13.9 % (11.5-14.5)
[2018-05-12 04:57] LABS: WHITE BLOOD COUNT 22.4 10^3/ul (4.8-10.8)
[2018-05-12 05:32] LABS: ANION GAP 5 (5-13); BLOOD UREA NITROGEN 22 mg/dl (7-20); CALCIUM 8.3 mg/dl (8.4-10.2); CARBON DIOXIDE 29 mmol/L (21-31); CHLORIDE 103 mmol/L (97-110); CREATININE 0.64 mg/dl (0.44-1.00); GLUCOSE 92 mg/dl (70-220); POTASSIUM 3.9 mmol/L (3.5-5.1); SODIUM 137 mmol/L (135-144)
[2018-05-12] MEDS: PANTOPRAZOLE 40 MG INJ IV (05:36)
[2018-05-12] MEDS: LEVOTHYROXINE 25 MCG TAB PO (06:30)
[2018-05-12] MEDS: SERTRALINE 50 MG TAB PO (08:08)
[2018-05-12] MEDS: MULTIVITAMINS THERAPEUTIC TAB PO (08:08)
[2018-05-12] MEDS: ASCORBIC ACID 500 MG TAB PO (08:08)
[2018-05-12] MEDS: VANCOMYCIN 750 MG in SOD CHLORIDE 0.9% 150 ML IVPB (08:08)
[2018-05-12] MEDS: ENOXAPARIN 40 MG/0.4 ML SYG SC (08:22)
[2018-05-12] MEDS: GUAIFENESIN 20 MG/ML 5ML CUP PO ×3 (08:28→21:47)
[2018-05-12] MEDS: predniSONE 10 MG TAB PO (08:31)
[2018-05-12] MEDS: FUROSEMIDE 20 MG TAB PO (09:00)
[2018-05-12] MEDS: D5-NS + KCL 20 MEQ 1,000 ML IV (13:27)
[2018-05-12] MEDS: MELATONIN 3 MG TABLET PO (21:40)
[2018-05-12] MEDS: HYDROCODONE/APAP (5/325) TAB PO (21:47)
[2018-05-13] MEDS: GUAIFENESIN 20 MG/ML 5ML CUP PO ×2 (03:40→09:19)
[2018-05-13] MEDS: ALBUTEROL/IPRATROPIUM (NEB) 3 ML AMP NEB ×2 (04:01→21:19)
[2018-05-13 05:16] LABS: WHITE BLOOD COUNT 12.7 10^3/ul (4.8-10.8)
[2018-05-13 05:16] LABS: HEMOGLOBIN 9.1 g/dl (12.0-16.0); MEAN CORPUSCULAR HEMOGLOBIN 33.2 pg (29.0-33.0); MEAN CORPUSCULAR HGB CONC 33.7 g/dl (32.0-37.0); MEAN CORPUSCULAR VOLUME 98.5 fl (82.0-101.0); MEAN PLATELET VOLUME 9.3 fl (7.4-10.4); PLATELET COUNT 341 10^3/UL (140-415); RED BLOOD COUNT 2.74 10^6/ul (4.20-5.40); RED CELL DISTRIBUTION WIDTH 13.9 % (11.5-14.5)
[2018-05-13 05:28] LABS: ADD MAN DIFF? YES; POSITIVE DIFF @See below
[2018-05-13 05:47] LABS: ANION GAP 5 (5-13); BLOOD UREA NITROGEN 12 mg/dl (7-20); CALCIUM 8.2 mg/dl (8.4-10.2); CARBON DIOXIDE 31 mmol/L (21-31); CHLORIDE 101 mmol/L (97-110); CREATININE 0.61 mg/dl (0.44-1.00); GLUCOSE 112 mg/dl (70-220); POTASSIUM 3.7 mmol/L (3.5-5.1); SODIUM 137 mmol/L (135-144)
[2018-05-13] MEDS: PANTOPRAZOLE 40 MG INJ IV (06:02)
[2018-05-13] MEDS: LEVOTHYROXINE 25 MCG TAB PO (06:02)
[2018-05-13] MEDS: D5-NS + KCL 20 MEQ 1,000 ML IV (08:51)
[2018-05-13] MEDS: FUROSEMIDE 20 MG TAB PO (09:00)
[2018-05-13 09:06] LABS: ANISOCYTOSIS 1+ (0-0); BAND NEUTROPHILS #M 0.3 10^3/ul (0.0-0.6); BAND NEUTROPHILS % (M) 3 % (0-4); EOSINOPHILS % (M) 7 % (0-7); GIANT THROMBO% (M) 1 % (0-0); LYMPHOCYTES #M 1.7 10^3/ul (0.8-2.9); LYMPHOCYTES % (M) 14 % (15-51); MONOCYTE #M 0.2 10^3/ul (0.3-0.9); MONOCYTES % (M) 2 % (0-11); PLATELET ESTIMATE NORMAL; REACTIVE LYMPHOCYTES #M 0.2 10^3/ul (0.0-0.0); REACTIVE LYMPHOCYTES% (M) 2 % (0-0); SEG NEUT #M 9.2 10^3/ul (1.6-7.5); SEGMENTED NEUTROPHILS (M) % 72 % (39-77); SMUDGE%M 6 % (0-0); TARGET CELLS 1+ (0-0)
[2018-05-13] MEDS: SERTRALINE 50 MG TAB PO (09:19)
[2018-05-13] MEDS: MULTIVITAMINS THERAPEUTIC TAB PO (09:19)
[2018-05-13] MEDS: ASCORBIC ACID 500 MG TAB PO (09:19)
[2018-05-13] MEDS: ENOXAPARIN 40 MG/0.4 ML SYG SC (09:27)
[2018-05-13] MEDS: predniSONE 10 MG TAB PO (09:31)
[2018-05-13] MEDS: GUAIFENESIN/DM 5ML CUP PO (12:36)
[2018-05-13] MEDS: CEPASTAT LOZENGE MT (15:10)
[2018-05-13] MEDS: GUAIFENESIN/CODEINE 5ML CUP PO (17:59)
[2018-05-13] MEDS: PIPER-TAZO 3.375 GM IV (PMX) 100 ML IVPB (18:00)
[2018-05-13] MEDS: MELATONIN 3 MG TABLET PO (21:11)
[2018-05-14] MEDS: PIPER-TAZO 3.375 GM IV (PMX) 100 ML IVPB ×3 (01:56→18:38)
[2018-05-14] MEDS: PANTOPRAZOLE 40 MG INJ IV (06:43)
[2018-05-14] MEDS: LEVOTHYROXINE 25 MCG TAB PO (06:44)
[2018-05-14] MEDS: SERTRALINE 50 MG TAB PO (09:34)
[2018-05-14] MEDS: ASCORBIC ACID 500 MG TAB PO (09:34)
[2018-05-14] MEDS: predniSONE 10 MG TAB PO (09:34)
[2018-05-14] MEDS: FUROSEMIDE 20 MG TAB PO (09:35)
[2018-05-14] MEDS: MULTIVITAMINS THERAPEUTIC TAB PO (09:35)
[2018-05-14] MEDS: ENOXAPARIN 40 MG/0.4 ML SYG SC (09:36)
[2018-05-14] MEDS: MELATONIN 3 MG TABLET PO (23:55)
[2018-05-15] MEDS: PIPER-TAZO 3.375 GM IV (PMX) 100 ML IVPB ×3 (01:18→17:04)
[2018-05-15] MEDS: morphine 2 MG INJ IV (01:19)
[2018-05-15] MEDS: PANTOPRAZOLE 40 MG INJ IV (06:36)
[2018-05-15] MEDS: LEVOTHYROXINE 25 MCG TAB PO (06:36)
[2018-05-15] MEDS: FUROSEMIDE 20 MG TAB PO (08:48)
[2018-05-15] MEDS: SERTRALINE 50 MG TAB PO (08:48)
[2018-05-15] MEDS: ASCORBIC ACID 500 MG TAB PO (08:49)
[2018-05-15] MEDS: MULTIVITAMINS THERAPEUTIC TAB PO (08:49)
[2018-05-15] MEDS: predniSONE 10 MG TAB PO (08:49)
[2018-05-15] MEDS: ENOXAPARIN 40 MG/0.4 ML SYG SC (08:50)
[2018-05-15] MEDS: GUAIFENESIN/CODEINE 5ML CUP PO (14:05)
== END 2018-05-15 20:43 | DRG 871 ==
LOC: 6WM 05-14 02:06 → E/R 06:43 → ICU 09:07
PROVIDERS: Internal Medicine
PROC: 5A09357 Assistance with Respiratory Ventilation, Less than 24 Consecutive Hours, Continuous Positive Airway Pressure (ICD-10-PCS; principal; 2018-05-10)
PROC: 06HY33Z Insertion of Infusion Device into Lower Vein, Percutaneous Approach (ICD-10-PCS; 2018-05-10)
PROC: B54BZZA Ultrasonography of Right Lower Extremity Veins, Guidance (ICD-10-PCS; 2018-05-10)
PROC: 4A033R1 Measurement of Arterial Saturation, Peripheral, Percutaneous Approach (ICD-10-PCS; 2018-05-10)
DX: A41.9 Sepsis, unspecified organism (principal); R65.21 Severe sepsis with septic shock; J96.21 Acute and chronic respiratory failure with hypoxia; J18.9 Pneumonia, unspecified organism; J44.0 Chronic obstructive pulmonary disease with (acute) lower respiratory infection; J84.112 Idiopathic pulmonary fibrosis; I11.0 Hypertensive heart disease with heart failure; I50.9 Heart failure, unspecified; I25.10 Atherosclerotic heart disease of native coronary artery without angina pectoris; E03.9 Hypothyroidism, unspecified; D64.9 Anemia, unspecified
CPT/HCPCS: 36415; 36600; 71045; 80048; 81001; 82803; 83036; 83605; 83735; 84100; 84484; 85025; 85610; 85730; 87040; 87081; 87086; 92526; 92610; 93005; 94640; 94644; 94660; 94664; 96365; 96367; 99291-25